=== PATIENT | female | born 1965 | race Hispanic/Latino ===

== ENCOUNTER → 2020-02-06 | Day surgery (SDC) | payer BC ==
--- NOTE | 2020-02-06 11:38 | RAD REPORT ---
EXAM DESCRIPTION: US - Breast Core BX w/US Guidance - 02/06/2020 11:19 am CLINICAL HISTORY: N63.20 COMPARISON: Ultrasound January 16, 2020 TECHNIQUE: The patient presents for ultrasound-guided biopsy of a previously detailed mass 8 o'clock left breast breast mass. The ultrasound-guided core biopsy procedure, risks and alternatives were discussed with the patient i n detail. After answering all questions, both oral and written consent were obtained. Time out proced ure was performed. The patient had no contraindicated allergy or medication history. Preliminary imaging identified the 9 millimeter hypoechoic mass 8 o'clock left breast. The left breas t was prepped and draped in the usual sterile fashion. From a inferolateral approach, skin and deeper tissues were anesthetized with 1% lidocaine. Under direct sonographic visualization a 14 gauge vacuu m assisted core biopsy needle was advanced and placed at the margin of the mass. There were a total o f 2 core biopsies obtained under direct sonographic guidance. The mass did appear to have distortion in contour supporting transit of the biopsy needle through the small mass. Fluid or cyst content was observed in transfer of the biopsy specimen onto the collecting pad. At the conclusion of the procedure a localization clip was placed under sonographic guidance. There w ere is little remaining mass tissue identifiable at the conclusion of the procedure. Post biopsy imaging showed no hematoma or measurable bleeding within the breast. Hemostasis was obtai adelia at the skin site with a sterile bandage placed. Post procedure care and precaution instructions were given to the patient. IMPRESSION: 1. Ultrasound-guided core biopsy was performed of the 9 millimeter left breast mass. All obtained material was given to pathology for histologic assessment. 2. Post biopsy localization clip was placed under ultrasound guidance.
== END ==
LOC: DS 09:48
DX: N63.20 Unspecified lump in the left breast, unspecified quadrant (principal)
CPT/HCPCS: 19083; 88305

== ENCOUNTER → 2024-10-14 | Day surgery (SDC) | payer BC ==
--- NOTE | 2024-10-14 10:59 | RAD REPORT ---
EXAMINATION: ULTRASOUND GUIDED VACUUM-ASSISTED RIGHT BREAST CORE NEEDLE BIOPSY RIGHT breast core needle biopsy; percutaneous, using ultrasound guidance. Image guided placement, metallic localization clip, percutaneous. Post Bx mammogram: Right diagnostic mammogram CLINICAL INDICATION:. N63.11 INFORMED CONSENT: The risks, benefits, alternatives, and potential complications of ultrasound guided vacuum-assisted RIGHT breast biopsy were discussed with the patient. An informed consent sheet was signed. The risks include but are not limited to the following: bleeding, infection, vascular injury, organ injury, pneumothorax, allergic reaction, and the need for emergent surgery/procedures. BIOPSY TARGET: Right breast, Lateral approach. 10:00 hypoechoic lesion NEEDLE: 12 gauge Celero vacuum-assisted core biopsy needle, 4 cores. SEDATION: None. COMPLICATIONS: None. TECHNIQUE: Appropriate audible time out was performed. The skin was prepped and draped in the normal fashion. The soft tissues were anesthetized with lidocaine. Utilizing real-time ultrasound guidance, a vacuum-assisted core biopsy needle was placed into the breast location described below wi th removal of tissue for pathology evaluation. Metallic clip was placed within the biopsied lesion under ultrasound guidance. Compression was held. Hemostasis was achieved. Sterile dressing was applie d. Patient tolerated the procedure well without immediate complication. The technologist was in the room with the radiologist throughout the procedure. IMPRESSION: 1.Successful ultrasound guided vacuum-assisted core biopsy of the RIGHT 10:00 breast lesion as descri bed above. 2. Biopsy clip placed within the biopsied lesion. 3. The lesion at 12:00 noted on the prior ultrasound was not biopsied. Targeted ultrasound of the 12: 00 area demonstrated several fairly diffusely dilated ducts with some intermixed ductal debris. Biopsy was not performed as there were several similar-sized and appearing abnormalities.
== END ==
LOC: DS 08:00 → EDSTATUS 09:00
PROVIDERS: ATTEND Surgery
DX: D24.1 Benign neoplasm of right breast (principal)
CPT/HCPCS: 19083; 77065; 88305